=== PATIENT | female | born 1990 | race Hispanic/Latino ===

== ENCOUNTER 2022-11-30 16:16 | Emergency (ER) | payer OTHER ==
[~2022-11-30] VITALS: Ht 152.4 cm; Wt 56.6 kg
[2022-11-30] MEDS ORDERED: KETOROLAC 60MG 2ML VIAL IM ONE (19:20)
[2022-11-30] MEDS ORDERED: LIDOCAINE 5% (LIDODERM) PATCH TD ONE (19:20)
[2022-11-30] MEDS ORDERED: IBUP-1022 PO (21:29)
[2022-11-30] MEDS ORDERED: ASPE4PAD TOP (21:29)
[2022-11-30 21:39] VITALS: BP 118/79; TEMP 98.2; O2SAT 98
== END 2022-11-30 21:40 | disposition home or self-care (01) ==
LOC: M ED 16:16
DX: M25.511 Pain in right shoulder (principal); M54.9 Dorsalgia, unspecified; T07.XXXA Unspecified multiple injuries, initial encounter; N83.292 Other ovarian cyst, left side; Y04.8XXA Assault by other bodily force, initial encounter; Y92.009 Unspecified place in unspecified non-institutional (private) residence as the place of occurrence of the external cause; Z97.5 Presence of (intrauterine) contraceptive device; Z88.8 Allergy status to other drugs, medicaments and biological substances
CPT/HCPCS: 72072; 72110; 73030; 73110; 76830; 76856; 93976; 96372; 99283; J1885